=== PATIENT | female | born 1940 | race Caucasian/White ===

== ENCOUNTER 2019-03-14 10:40 | Emergency (ER) | payer MEDICARE ==
[~2019-03-14] VITALS: Ht 154.9 cm; Wt 77.3 kg
[~2019-03-14 10:40] MED LIST: AMLO2.5T2 PO; ASPI-1264 PO; ATEN100T PO; DOCU-20 PO; EZET10TA14 PO; FURO80TA87 PO; LISI40TA4 PO; LORA10TA7 PO; OMEP20TA5 PO; RANI-648 PO
[2019-03-14 11:32] LABS: BASOPHILS % (AUTO) 0.3 % (0-1); EOSINOPHILS # (AUTO) 0.1 X10'3 (0-0.9); EOSINOPHILS % (AUTO) 1.8 % (0-6); HEMATOCRIT 30.6 % (35.0-45.0); HEMOGLOBIN 10.6 g/dl (12.0-16.0); LYMPHOCYTES # (AUTO) 0.7 X10'3 (1.1-4.8); LYMPHOCYTES % (AUTO) 10.5 % (21-51); MEAN CORPUSCULAR HGB CONC 34.5 g/dL (33.0-36.5); MEAN PLATELET VOLUME 8.2 FL (7.4-10.4); MONOCYTES # (AUTO) 0.7 X10'3 (0-0.9); MONOCYTES % (AUTO) 10.9 % (2-12); NEUTROPHILS # (AUTO) 5.2 X10'3 (1.8-7.7); NEUTROPHILS % (AUTO) 76.5 % (42-75); PLATELET COUNT 244 X10'3 (140-440); RED BLOOD COUNT 3.52 X10'6 (4.20-5.60); RED CELL DISTRIBUTION WIDTH 12.9 % (11.5-14.5); WHITE BLOOD COUNT 6.8 X10'3 (4.5-11.0)
[2019-03-14 11:50] LABS: PARTIAL THROMBOPLASTIN TIME 29 SECONDS (22-32)
[2019-03-14 11:51] LABS: ALANINE AMINOTRANSFERASE 21 U/L (12-78); ALBUMIN 3.4 G/DL (3.4-5.0); ALKALINE PHOSPHATASE 92 IU/L (46-116); ANION GAP 6 (8-16); ASPARTATE AMINO TRANSFERASE 17 U/L (10-37); BILIRUBIN,TOTAL 0.6 MG/DL (0.1-1.0); BLOOD UREA NITROGEN 26 MG/DL (7-18); BUN/CREATININE RATIO 20.6 (6.6-38.0); CALCIUM 8.8 MG/DL (8.5-10.1); CHLORIDE 93 MMOL/L (99-107); CREATININE 1.26 MG/DL (0.40-0.90); GLUCOSE 111 MG/DL (70-104); POTASSIUM 4.1 MMOL/L (3.5-5.1); SODIUM 127 MMOL/L (135-145); TOTAL CARBON DIOXIDE 27.7 MMOL/L (24-32); TOTAL PROTEIN 6.9 G/DL (6.4-8.2); eGFR 41 ML/MIN
[2019-03-14] MEDS ORDERED: normal saline 1000ML IV soln IVB ONE (12:35)
[2019-03-14] MEDS ORDERED: iohexol 350MG/ML 100ml bottle IV ONE (12:46)
--- NOTE | 2019-03-14 13:16 | NUR ---
PT RETURNED FROM CT. OXYGEN REAPPLIED AT 5 LITERS. RA SAT AROUND 83%. ON 5 LITERS PT MOVED BACK TO 96%.
--- NOTE | 2019-03-14 15:18 | NUR ---
CALLED DR. PHAN FOR PA. LEFT MESSAGE
[2019-03-14] MEDS ORDERED: dabigatran 150mg capsule PO ONE (15:20)
[2019-03-14] MEDS ORDERED: DABI150C PO (15:47)
[2019-03-14 16:15] VITALS: BP 170/58
== END 2019-03-14 16:18 | disposition home or self-care (01) ==
LOC: ER 10:41
DX: S80.01XA Contusion of right knee, initial encounter (principal); S80.11XA Contusion of right lower leg, initial encounter; R06.02 Shortness of breath; I82.4Z1 Acute embolism and thrombosis of unspecified deep veins of right distal lower extremity; E78.00 Pure hypercholesterolemia, unspecified; I10 Essential (primary) hypertension; K21.9 Gastro-esophageal reflux disease without esophagitis; Z90.710 Acquired absence of both cervix and uterus; Z79.82 Long term (current) use of aspirin; Z79.899 Other long term (current) drug therapy; X58.XXXA Exposure to other specified factors, initial encounter; Y93.89 Activity, other specified; Y92.89 Other specified places as the place of occurrence of the external cause; Y99.8 Other external cause status
CPT/HCPCS: 36415; 71045; 71275; 80053; 84484; 85025; 85379; 85610; 85730; 93005; 93971; 99284; J7030; Q9967

== ENCOUNTER 2021-09-12 07:11 | Day surgery (SDC) | payer MEDICARE ==
[2021-09-11 15:15] LABS: BASOPHILS % (AUTO) 0.3 % (0-1); EOSINOPHILS # (AUTO) 0.2 X10'3 (0-0.9); EOSINOPHILS % (AUTO) 2.7 % (0-6); HEMOGLOBIN 12.9 g/dl (12.0-16.0); LYMPHOCYTES # (AUTO) 1.3 X10'3 (1.1-4.8); LYMPHOCYTES % (AUTO) 17.9 % (21-51); MEAN CORPUSCULAR HEMOGLOBIN 29.7 PG (27.0-31.0); MEAN CORPUSCULAR HGB CONC 33.8 g/dL (33.0-36.5); MEAN CORPUSCULAR VOLUME 87.9 FL (78-98); MEAN PLATELET VOLUME 9.2 FL (7.4-10.4); MONOCYTES # (AUTO) 0.6 X10'3 (0-0.9); NEUTROPHILS # (AUTO) 4.9 X10'3 (1.8-7.7); NEUTROPHILS % (AUTO) 70.1 % (42-75); PLATELET COUNT 203 X10'3 (140-440); RED BLOOD COUNT 4.33 X10'6 (4.20-5.60); RED CELL DISTRIBUTION WIDTH 12.8 % (11.5-14.5); WHITE BLOOD COUNT 7.1 X10'3 (4.5-11.0)
[2021-09-11 15:22] LABS: ANION GAP 9 (8-16); BLOOD UREA NITROGEN 36 MG/DL (7-18); BUN/CREATININE RATIO 18.5 (6.6-38.0); CALCIUM 8.9 MG/DL (8.5-10.1); CHLORIDE 103 MMOL/L (99-107); CREATININE 1.95 MG/DL (0.40-0.90); GLUCOSE 115 MG/DL (70-104); POTASSIUM 4.4 MMOL/L (3.5-5.1); SODIUM 137 MMOL/L (135-145); TOTAL CARBON DIOXIDE 25.2 MMOL/L (24-32); eGFR 25 ML/MIN
[2021-09-11 15:26] LABS: PARTIAL THROMBOPLASTIN TIME 25 SECONDS (22-32)
[2021-09-12] VITALS (14 sets, daily range): BP systolic 18–149; BP diastolic 46–70
[~2021-09-12] VITALS: Ht 154.9 cm; Wt 69.9 kg
[~2021-09-12 07:11] MED LIST changes: -ASPI-1264 PO; +DABI150C PO; -DOCU-20 PO; +DOCU-348 PO; -EZET10TA14 PO; +EZET10TA6 PO; +LISI40TA13 PO; -LISI40TA4 PO
[2021-09-12] MEDS ORDERED: LORazepam 0.5 MG tablet PO PRN (07:40)
[2021-09-12] MEDS ORDERED: sodium bicarbonate (8.4%) inj. 150 ML in dextrose 5%-water 1,000 ML IV ONE (07:40)
[2021-09-12] MEDS ORDERED: normal saline 1,000 ML IV SCH (07:40)
[2021-09-12] MEDS ORDERED: diphenhydrAMINE 25mg capsule PO PRN (07:40)
[2021-09-12] MEDS ORDERED: LIDOcaine/PRILOcaine 5gm cream TP ONE (07:40)
[2021-09-12] MEDS ORDERED: AMLO5TAB16 PO (08:09)
[2021-09-12] MEDS ORDERED: ROSU40TA22 PO (08:09)
[2021-09-12] MEDS ORDERED: CLOP75TA34 PO (08:09)
[2021-09-12] MEDS ORDERED: MULT-1085 PO (08:13)
[2021-09-12] MEDS ORDERED: CALC600T35 PO (08:13)
[2021-09-12] MEDS ORDERED: ibuprofen (08:13)
[2021-09-12] MEDS ORDERED: iohexol 350 MG/ML 50ML vial IV ONE (08:38)
[2021-09-12] MEDS ORDERED: LIDOcaine 1% (10mg/ml)w/preservative injection 20ml MDV ONE (08:38)
[2021-09-12] MEDS ORDERED: iohexol 350MG/ML 100ml bottle IV ONE ×2 (08:38→09:59)
[2021-09-12] MEDS ORDERED: fentaNYL/PF 50MCG/1 ML 2ML syringe ONE (08:38)
[2021-09-12] MEDS ORDERED: verapamil 2.5 mg/ml inj IV ONE (08:38)
[2021-09-12] MEDS ORDERED: heparin 1,000unit/ml 10ml vial 10 ML ONE (08:38)
[2021-09-12] MEDS ORDERED: midazolam 1 mg/ML 2ml injection ONE (08:38)
[2021-09-12] MEDS ORDERED: nitroGLYCERIN-Tridil 50MG/D5W 250 ML IV ONE (08:39)
[2021-09-12] MEDS ORDERED: heparin 25,000 UNIT/250ml bag 250 ML IV ONE (09:59)
[2021-09-12] MEDS ORDERED: clopidogrel 300mg tablet ONE (10:28)
[2021-09-12] MEDS ORDERED: proCHLORperazine 10 MG/2 ml inj IV PRN (11:20)
[2021-09-12] MEDS ORDERED: acetaminophen 325mg tablet PO PRN ×2 (11:20)
[2021-09-12] MEDS ORDERED: HYDROcodone/acetaminophen 10/325mg tab PO PRN ×2 (11:20)
[2021-09-12] MEDS ORDERED: magnesium hydroxide 30ml (MOM) UD suspension PO PRN (11:20)
[2021-09-12] MEDS ORDERED: heparin 25,000 UNIT/250ml bag 250 ML IV SCH (11:20)
[2021-09-12] MEDS ORDERED: cyclobenzaprine 10mg tablet PO PRN (11:20)
[2021-09-12] MEDS ORDERED: OXAZEpam 15mg capsule PO PRN (11:20)
[2021-09-12] MEDS ORDERED: sodium bicarbonate (8.4%) inj. 150 MEQ in dextrose 5%-water 1,000 ML IV SCH (11:25)
[2021-09-12] MEDS: acetylcysteine 200 MG/ml 4ml vial PO PRN ×2 (11:35→19:13)
--- NOTE | 2021-09-12 14:33 | NUR ---
Pt returned to room -report rec'd from Oscar Carr RN- Rt groin site drsg saturated and actively bleeding-R wrist at vasc band w/visible drainage on and around the drsg/vasc band Addendum: 09/12/21 at 1437 by Mami Ann RN Amended: Links added.
[2021-09-12] MEDS ORDERED: docusate sod 100mg capsule PO SCH (20:00)
[2021-09-13] MEDS ORDERED: clopidogrel 75mg tablet PO SCH (08:00)
== END 2021-09-12 19:30 | disposition home or self-care (01) ==
LOC: SSTAY O 07:11
PROVIDERS: ATTEND Internal Medicine Cardiovascular Disease
DX: R94.39 Abnormal result of other cardiovascular function study (principal); I25.10 Atherosclerotic heart disease of native coronary artery without angina pectoris; I25.82 Chronic total occlusion of coronary artery; I08.1 Rheumatic disorders of both mitral and tricuspid valves; I27.20 Pulmonary hypertension, unspecified; E78.5 Hyperlipidemia, unspecified; I25.2 Old myocardial infarction; I10 Essential (primary) hypertension; Z96.653 Presence of artificial knee joint, bilateral; Z90.710 Acquired absence of both cervix and uterus; Z86.711 Personal history of pulmonary embolism; Z79.899 Other long term (current) drug therapy; Z79.01 Long term (current) use of anticoagulants; Z87.891 Personal history of nicotine dependence; Z95.5 Presence of coronary angioplasty implant and graft; Z82.49 Family history of ischemic heart disease and other diseases of the circulatory system
CPT/HCPCS: 36415; 80048; 85025; 85610; 85730; 93005; 93460; 99152; 99153; C1725; C1751; C1769; C1874; C1894; C9600; J1644; J2250; J3010; J3490; J7030; J7070; Q0163; Q9967; A4620; A5120; A6258

== ENCOUNTER 2022-03-06 12:10 | Emergency (ER) | payer MEDICARE ==
[~2022-03-06] VITALS: Ht 154.9 cm; Wt 68.6 kg
[~2022-03-06 12:10] MED LIST changes: -AMLO2.5T2 PO; +AMLO5TAB16 PO; +CALC600T35 PO; +CLOP75TA34 PO; -DABI150C PO; -DOCU-348 PO; -LORA10TA7 PO; +MULT-1085 PO; -OMEP20TA5 PO; -RANI-648 PO; +ROSU40TA22 PO; +ibuprofen
[2022-03-06] MEDS ORDERED: furosemide 40mg/4ml inj IV ONE (12:35)
[2022-03-06 13:05] LABS: BASOPHILS % (AUTO) 0.2 % (0-1); EOSINOPHILS # (AUTO) 0.1 X10'3 (0-0.9); EOSINOPHILS % (AUTO) 1.1 % (0-6); HEMATOCRIT 37.9 % (35.0-45.0); HEMOGLOBIN 12.8 g/dl (12.0-16.0); LYMPHOCYTES # (AUTO) 1.2 X10'3 (1.1-4.8); LYMPHOCYTES % (AUTO) 16.5 % (21-51); MEAN CORPUSCULAR HEMOGLOBIN 28.9 PG (27.0-31.0); MEAN CORPUSCULAR HGB CONC 33.7 g/dL (33.0-36.5); MEAN CORPUSCULAR VOLUME 85.6 FL (78-98); MEAN PLATELET VOLUME 9.1 FL (7.4-10.4); MONOCYTES # (AUTO) 0.7 X10'3 (0-0.9); MONOCYTES % (AUTO) 9.4 % (2-12); NEUTROPHILS # (AUTO) 5.4 X10'3 (1.8-7.7); NEUTROPHILS % (AUTO) 72.8 % (42-75); PLATELET COUNT 173 X10'3 (140-440); RED BLOOD COUNT 4.43 X10'6 (4.20-5.60); RED CELL DISTRIBUTION WIDTH 13.3 % (11.5-14.5); WHITE BLOOD COUNT 7.5 X10'3 (4.5-11.0)
[2022-03-06 13:12] LABS: ALANINE AMINOTRANSFERASE 12 U/L (12-78); ALBUMIN 4.1 G/DL (3.4-5.0); ALBUMIN/GLOBULIN RATIO 1.3 (1.1-1.5); ALKALINE PHOSPHATASE 59 IU/L (46-116); ANION GAP 10 (8-16); ASPARTATE AMINO TRANSFERASE 14 U/L (10-37); BLOOD UREA NITROGEN 43 MG/DL (7-18); BUN/CREATININE RATIO 19.7 (6.6-38.0); CALCIUM 9.5 MG/DL (8.5-10.1); CHLORIDE 101 MMOL/L (99-107); CREATININE 2.18 MG/DL (0.40-0.90); GLUCOSE 115 MG/DL (70-104); POTASSIUM 4.3 MMOL/L (3.5-5.1); SODIUM 138 MMOL/L (135-145); TOTAL CARBON DIOXIDE 27.5 MMOL/L (24-32); TOTAL PROTEIN 7.3 G/DL (6.4-8.2); eGFR 22 ML/MIN
[2022-03-06 17:52] VITALS: BP 146/49
== END 2022-03-06 17:56 | disposition home or self-care (01) ==
LOC: ER 12:11
DX: I13.0 Hypertensive heart and chronic kidney disease with heart failure and stage 1 through stage 4 chronic kidney disease, or unspecified chronic kidney disease (principal); N18.9 Chronic kidney disease, unspecified; E78.00 Pure hypercholesterolemia, unspecified; R06.02 Shortness of breath; K21.9 Gastro-esophageal reflux disease without esophagitis; Z90.710 Acquired absence of both cervix and uterus; Z79.899 Other long term (current) drug therapy
CPT/HCPCS: 36415; 71045; 80053; 83880; 84484; 85025; 93005; 96374; 99285; J1940

== ENCOUNTER 2022-06-19 03:48 | Inpatient (IN) | payer MEDICARE ==
[~2022-06-19] VITALS: Ht 154.9 cm; Wt 65.9 kg
[2022-06-19 04:33] LABS: EOSINOPHILS # (AUTO) 0.2 X10'3 (0-0.9); MEAN CORPUSCULAR HEMOGLOBIN 29.5 PG (27.0-31.0); MEAN PLATELET VOLUME 8.8 FL (7.4-10.4); MONOCYTES # (AUTO) 0.8 X10'3 (0-0.9)
[2022-06-19 04:34] LABS: BASOPHILS % (AUTO) 0.3 % (0-1); EOSINOPHILS % (AUTO) 1.9 % (0-6); HEMATOCRIT 37.9 % (35.0-45.0); HEMOGLOBIN 12.7 g/dl (12.0-16.0); LYMPHOCYTES # (AUTO) 1.7 X10'3 (1.1-4.8); LYMPHOCYTES % (AUTO) 16.8 % (21-51); MEAN CORPUSCULAR HGB CONC 33.6 g/dL (33.0-36.5); MONOCYTES % (AUTO) 7.6 % (2-12); NEUTROPHILS # (AUTO) 7.5 X10'3 (1.8-7.7); NEUTROPHILS % (AUTO) 73.4 % (42-75); PLATELET COUNT 199 X10'3 (140-440); RED BLOOD COUNT 4.31 X10'6 (4.20-5.60); RED CELL DISTRIBUTION WIDTH 13.7 % (11.5-14.5); WHITE BLOOD COUNT 10.2 X10'3 (4.5-11.0)
[2022-06-19 04:40] LABS: ALANINE AMINOTRANSFERASE 14 U/L (12-78); ALBUMIN 3.9 G/DL (3.4-5.0); ALBUMIN/GLOBULIN RATIO 1.4 (1.1-1.5); ALKALINE PHOSPHATASE 58 IU/L (46-116); ANION GAP 10 (8-16); ASPARTATE AMINO TRANSFERASE 16 U/L (10-37); BILIRUBIN,TOTAL 0.6 MG/DL (0.1-1.0); BLOOD UREA NITROGEN 48 MG/DL (7-18); BUN/CREATININE RATIO 14.6 (6.6-38.0); CALCIUM 8.8 MG/DL (8.5-10.1); CHLORIDE 98 MMOL/L (99-107); CREATININE 3.29 MG/DL (0.40-0.90); GLUCOSE 144 MG/DL (70-104); POTASSIUM 4.7 MMOL/L (3.5-5.1); SODIUM 133 MMOL/L (135-145); TOTAL CARBON DIOXIDE 25.1 MMOL/L (24-32); TOTAL PROTEIN 6.7 G/DL (6.4-8.2); eGFR 13 ML/MIN
[2022-06-19] MEDS ORDERED: POTASSIUM BICARB 20meq eff tab 20 MEQ TABLET.EFF PO PRN ×2 (05:20)
[2022-06-19] MEDS ORDERED: ondansetron/PF 4mg/2ml inj IV PRN (05:20)
[2022-06-19] MEDS ORDERED: magnesium 2GM in 50ml NS 50 ML IV PRN (05:20)
[2022-06-19] MEDS ORDERED: magnesium Cl slow-release 64mg tablet PO PRN (05:20)
[2022-06-19] MEDS ORDERED: magnesium 4gm in 100ml NS 100 ML IV PRN (05:20)
[2022-06-19] MEDS ORDERED: potassium CL 10mEq/100ml bag 100 ML IV PRN (05:20)
[2022-06-19] MEDS ORDERED: acetaminophen 325mg tablet PO PRN (05:20)
[2022-06-19] MEDS ORDERED: magnesium hydroxide 30ml (MOM) UD suspension PO PRN (05:20)
[2022-06-19] MEDS ORDERED: mag hydrox/Alum hydrox/simeth 30ml oral suspension PO PRN (05:20)
[2022-06-19] MEDS ORDERED: ROSU5TAB12 PO (05:34)
[2022-06-19] MEDS ORDERED: LISI-644 PO (05:34)
[2022-06-19] MEDS ORDERED: FURO-150 PO (05:34)
[2022-06-19] MEDS: K and/or MAG REPLACEMENT MC SCH ×2 (06:41→20:00)
[2022-06-19] MEDS: lisinopril 20mg tablet PO SCH (07:42)
[2022-06-19] MEDS: amLODIPine 5mg tablet PO SCH (07:42)
[2022-06-19] MEDS: multivitamins, therapeutics tablet PO SCH (07:42)
[2022-06-19] MEDS: docusate sod 100mg capsule PO SCH ×2 (07:43→21:26)
[2022-06-19] MEDS: heparin, porcine 5000 units/ml vial SQ SCH ×2 (07:43→21:27)
[2022-06-19] MEDS: ezetimibe 10mg tablet PO SCH (07:43)
[2022-06-19] MEDS ORDERED: furosemide 20MG tablet PO SCH (08:00)
[2022-06-19] MEDS: ATENOLOL PO SCH (08:00)
[2022-06-19 08:30] LABS: MAGNESIUM 2.5 MG/DL (1.5-2.4)
[2022-06-19] MEDS ORDERED: ROSU20TA31 PO (08:43)
[2022-06-19 11:00] VITALS: BP 120/52
[2022-06-19] MEDS ORDERED: furosemide 10 MG/1 ML 10ml inj IV ONE (11:30)
[2022-06-19 15:00] VITALS: BP 121/40
[2022-06-19 22:00] VITALS: BP 99/48
[2022-06-20 02:00] VITALS: BP 103/41
[2022-06-20 07:20] LABS: BASOPHILS % (AUTO) 0.2 % (0-1); EOSINOPHILS # (AUTO) 0.1 X10'3 (0-0.9); EOSINOPHILS % (AUTO) 1.6 % (0-6); HEMATOCRIT 34.9 % (35.0-45.0); LYMPHOCYTES % (AUTO) 14.8 % (21-51); MEAN CORPUSCULAR HEMOGLOBIN 30.4 PG (27.0-31.0); MEAN CORPUSCULAR HGB CONC 34.4 g/dL (33.0-36.5); MEAN CORPUSCULAR VOLUME 88.3 FL (78-98); MEAN PLATELET VOLUME 8.5 FL (7.4-10.4); MONOCYTES # (AUTO) 0.8 X10'3 (0-0.9); NEUTROPHILS # (AUTO) 4.9 X10'3 (1.8-7.7); NEUTROPHILS % (AUTO) 71.4 % (42-75); PLATELET COUNT 150 X10'3 (140-440); RED BLOOD COUNT 3.95 X10'6 (4.20-5.60); RED CELL DISTRIBUTION WIDTH 13.8 % (11.5-14.5); WHITE BLOOD COUNT 6.8 X10'3 (4.5-11.0)
[2022-06-20 07:41] VITALS: BP 118/41
[2022-06-20 07:42] LABS: ALANINE AMINOTRANSFERASE 14 U/L (12-78); ALBUMIN 3.6 G/DL (3.4-5.0); ALBUMIN/GLOBULIN RATIO 1.3 (1.1-1.5); ALKALINE PHOSPHATASE 55 IU/L (46-116); ANION GAP 7 (8-16); ASPARTATE AMINO TRANSFERASE 17 U/L (10-37); BILIRUBIN,TOTAL 0.7 MG/DL (0.1-1.0); BLOOD UREA NITROGEN 49 MG/DL (7-18); BUN/CREATININE RATIO 15.6 (6.6-38.0); CALCIUM 8.7 MG/DL (8.5-10.1); CHLORIDE 100 MMOL/L (99-107); CREATININE 3.14 MG/DL (0.40-0.90); GLUCOSE 101 MG/DL (70-104); POTASSIUM 4.2 MMOL/L (3.5-5.1); SODIUM 137 MMOL/L (135-145); TOTAL CARBON DIOXIDE 29.9 MMOL/L (24-32); TOTAL PROTEIN 6.4 G/DL (6.4-8.2); eGFR 14 ML/MIN
[2022-06-20] MEDS: K and/or MAG REPLACEMENT MC SCH (08:00)
[2022-06-20] MEDS: ATENOLOL PO SCH (08:00)
[2022-06-20] MEDS ORDERED: PERFLUTREN PROTEIN-A MICROSPHR (Optison) 0.22 MG/ML 3ML VIAL IV ONE (08:40)
[2022-06-20] MEDS: ezetimibe 10mg tablet PO SCH (09:58)
[2022-06-20] MEDS: amLODIPine 5mg tablet PO SCH (09:58)
[2022-06-20] MEDS: lisinopril 20mg tablet PO SCH (09:59)
[2022-06-20] MEDS: multivitamins, therapeutics tablet PO SCH (10:00)
[2022-06-20] MEDS: docusate sod 100mg capsule PO SCH ×2 (10:00→20:23)
[2022-06-20] MEDS: heparin, porcine 5000 units/ml vial SQ SCH ×2 (10:03→20:22)
[2022-06-20] MEDS: furosemide 40mg/4ml inj IV SCH (10:12)
[2022-06-20 15:00] VITALS: BP 138/48
[2022-06-21 02:00] VITALS: BP 123/35
[2022-06-21 06:00] VITALS: BP 116/40
[2022-06-21 08:02] LABS: BASOPHILS % (AUTO) 0.3 % (0-1); EOSINOPHILS # (AUTO) 0.2 X10'3 (0-0.9); EOSINOPHILS % (AUTO) 2.9 % (0-6); HEMATOCRIT 38.9 % (35.0-45.0); HEMOGLOBIN 13.2 g/dl (12.0-16.0); LYMPHOCYTES % (AUTO) 29.5 % (21-51); MEAN CORPUSCULAR HEMOGLOBIN 29.9 PG (27.0-31.0); MEAN CORPUSCULAR HGB CONC 33.9 g/dL (33.0-36.5); MEAN CORPUSCULAR VOLUME 88.2 FL (78-98); MEAN PLATELET VOLUME 9.2 FL (7.4-10.4); MONOCYTES # (AUTO) 0.7 X10'3 (0-0.9); NEUTROPHILS # (AUTO) 3.8 X10'3 (1.8-7.7); NEUTROPHILS % (AUTO) 56.3 % (42-75); PLATELET COUNT 173 X10'3 (140-440); RED BLOOD COUNT 4.41 X10'6 (4.20-5.60); RED CELL DISTRIBUTION WIDTH 13.5 % (11.5-14.5); WHITE BLOOD COUNT 6.7 X10'3 (4.5-11.0)
[2022-06-21 08:31] LABS: ALANINE AMINOTRANSFERASE 15 U/L (12-78); ALBUMIN 3.9 G/DL (3.4-5.0); ALBUMIN/GLOBULIN RATIO 1.2 (1.1-1.5); ALKALINE PHOSPHATASE 57 IU/L (46-116); ANION GAP 9 (8-16); ASPARTATE AMINO TRANSFERASE 13 U/L (10-37); BILIRUBIN,TOTAL 0.7 MG/DL (0.1-1.0); BLOOD UREA NITROGEN 54 MG/DL (7-18); BUN/CREATININE RATIO 18.1 (6.6-38.0); CALCIUM 8.6 MG/DL (8.5-10.1); CHLORIDE 103 MMOL/L (99-107); CREATININE 2.98 MG/DL (0.40-0.90); GLUCOSE 91 MG/DL (70-104); POTASSIUM 4.2 MMOL/L (3.5-5.1); SODIUM 141 MMOL/L (135-145); TOTAL CARBON DIOXIDE 28.8 MMOL/L (24-32); TOTAL PROTEIN 7.1 G/DL (6.4-8.2); eGFR 15 ML/MIN
[2022-06-21] MEDS: ezetimibe 10mg tablet PO SCH (09:58)
[2022-06-21] MEDS: multivitamins, therapeutics tablet PO SCH (09:58)
[2022-06-21] MEDS: lisinopril 20mg tablet PO SCH (10:00)
[2022-06-21] MEDS: amLODIPine 5mg tablet PO SCH (10:00)
[2022-06-21] MEDS: docusate sod 100mg capsule PO SCH (10:01)
[2022-06-21] MEDS: heparin, porcine 5000 units/ml vial SQ SCH (10:04)
[2022-06-21] MEDS: furosemide 40mg/4ml inj IV SCH (10:09)
[2022-06-21 11:00] VITALS: BP 112/45
[2022-06-21 12:00] VITALS: BP 112/45
== END 2022-06-21 12:23 | disposition home or self-care (01) | DRG 291 ==
LOC: ER 03:49 → ED HOLD 05:21 → PCU 3S 09:29
PROVIDERS: ADMIT Internal Medicine; ATTEND Family Medicine
DX: I11.0 Hypertensive heart disease with heart failure (principal); I50.33 Acute on chronic diastolic (congestive) heart failure; R07.89 Other chest pain; I25.10 Atherosclerotic heart disease of native coronary artery without angina pectoris; E78.00 Pure hypercholesterolemia, unspecified; E78.5 Hyperlipidemia, unspecified; K21.9 Gastro-esophageal reflux disease without esophagitis; M19.042 Primary osteoarthritis, left hand; Z87.891 Personal history of nicotine dependence; Z90.710 Acquired absence of both cervix and uterus; Z95.5 Presence of coronary angioplasty implant and graft; Z79.899 Other long term (current) drug therapy
CPT/HCPCS: 36415; 71045; 80053; 83735; 83880; 84132; 84484; 85025; 85610; 87081; 93005; 93306; 99285; G0378; J1644; J1940

== ENCOUNTER 2022-06-26 20:04 | Emergency (ER) | payer MEDICARE ==
[~2022-06-26] VITALS: Ht 154.9 cm; Wt 53.2 kg
[~2022-06-26 20:04] MED LIST changes: -CALC600T35 PO; -CLOP75TA34 PO; +FURO-150 PO; -FURO80TA87 PO; +LISI-644 PO; -LISI40TA13 PO; +ROSU20TA31 PO; -ROSU40TA22 PO; -ibuprofen
[2022-06-26] MEDS ORDERED: furosemide 10 MG/1 ML 10ml inj IV ONE (21:25)
[2022-06-26 22:32] LABS: BASOPHILS % (AUTO) 0.2 % (0-1); EOSINOPHILS # (AUTO) 0.2 X10'3 (0-0.9); EOSINOPHILS % (AUTO) 1.9 % (0-6); HEMATOCRIT 34.3 % (35.0-45.0); HEMOGLOBIN 12.1 g/dl (12.0-16.0); LYMPHOCYTES # (AUTO) 1.2 X10'3 (1.1-4.8); LYMPHOCYTES % (AUTO) 13.1 % (21-51); MEAN CORPUSCULAR HEMOGLOBIN 30.9 PG (27.0-31.0); MEAN CORPUSCULAR HGB CONC 35.1 g/dL (33.0-36.5); MEAN PLATELET VOLUME 8.4 FL (7.4-10.4); MONOCYTES # (AUTO) 0.8 X10'3 (0-0.9); MONOCYTES % (AUTO) 8.6 % (2-12); NEUTROPHILS # (AUTO) 7.3 X10'3 (1.8-7.7); NEUTROPHILS % (AUTO) 76.2 % (42-75); PLATELET COUNT 189 X10'3 (140-440); RED CELL DISTRIBUTION WIDTH 14.1 % (11.5-14.5); WHITE BLOOD COUNT 9.5 X10'3 (4.5-11.0)
[2022-06-26 22:43] LABS: ALANINE AMINOTRANSFERASE 15 U/L (12-78); ALBUMIN 3.8 G/DL (3.4-5.0); ALBUMIN/GLOBULIN RATIO 1.4 (1.1-1.5); ALKALINE PHOSPHATASE 54 IU/L (46-116); ANION GAP 5 (8-16); ASPARTATE AMINO TRANSFERASE 17 U/L (10-37); BILIRUBIN,TOTAL 0.4 MG/DL (0.1-1.0); BLOOD UREA NITROGEN 74 MG/DL (7-18); BUN/CREATININE RATIO 19.2 (6.6-38.0); CALCIUM 9.1 MG/DL (8.5-10.1); CHLORIDE 99 MMOL/L (99-107); CREATININE 3.86 MG/DL (0.40-0.90); GLUCOSE 129 MG/DL (70-104); SODIUM 132 MMOL/L (135-145); TOTAL CARBON DIOXIDE 27.7 MMOL/L (24-32); TOTAL PROTEIN 6.5 G/DL (6.4-8.2); eGFR 11 ML/MIN
--- NOTE | 2022-06-26 22:45 | NUR ---
LASIX GIVEN - PENDING POTASSIUM LABS.
[2022-06-26 22:55] LABS: POTASSIUM 4.8 MMOL/L (3.5-5.1)
[2022-06-26] MEDS ORDERED: furosemide 40mg/4ml inj IV ONE (23:45)
--- NOTE | 2022-06-27 01:26 | NUR ---
Dianna Hanson (Daughter) [phone]
[2022-06-27] MEDS ORDERED: furosemide 10 MG/1 ML 10ml inj IV ONE (05:55)
--- NOTE | 2022-06-27 07:09 | NUR ---
AMBULATED IN HALLWAY PAST NURSES STATION , STEADY GAIT WITH SBA (STATES USES CANE AT HOME) NO SOB NOTED. COMMODE EMPTIED 1000 ML SL CLOUDY URINE.
[2022-06-27 10:07] VITALS: BP 101/49
== END 2022-06-27 17:32 | disposition home or self-care (01) ==
LOC: ER 21:04
DX: N17.9 Acute kidney failure, unspecified (principal); N18.9 Chronic kidney disease, unspecified; J96.90 Respiratory failure, unspecified, unspecified whether with hypoxia or hypercapnia; I11.0 Hypertensive heart disease with heart failure; I50.9 Heart failure, unspecified; E78.00 Pure hypercholesterolemia, unspecified; K21.9 Gastro-esophageal reflux disease without esophagitis; Z90.710 Acquired absence of both cervix and uterus
CPT/HCPCS: 36415; 71045; 80053; 83880; 84484; 85025; 93005; 96374; 99285; J1940

== ENCOUNTER 2022-08-13 07:54 | Inpatient (IN) | payer MEDICARE ==
[~2022-08-13] VITALS: Ht 154.9 cm; Wt 65.9 kg
[2022-08-13 08:49] LABS: BASOPHILS % (AUTO) 0.2 % (0-1); EOSINOPHILS # (AUTO) 0.1 X10'3 (0-0.9); EOSINOPHILS % (AUTO) 0.4 % (0-6); HEMATOCRIT 38.8 % (35.0-45.0); HEMOGLOBIN 12.8 g/dl (12.0-16.0); LYMPHOCYTES # (AUTO) 1.6 X10'3 (1.1-4.8); LYMPHOCYTES % (AUTO) 11.8 % (21-51); MEAN CORPUSCULAR HEMOGLOBIN 30.2 PG (27.0-31.0); MEAN CORPUSCULAR VOLUME 91.7 FL (78-98); MEAN PLATELET VOLUME 9.1 FL (7.4-10.4); MONOCYTES # (AUTO) 0.4 X10'3 (0-0.9); MONOCYTES % (AUTO) 3.2 % (2-12); NEUTROPHILS # (AUTO) 11.4 X10'3 (1.8-7.7); NEUTROPHILS % (AUTO) 84.4 % (42-75); PLATELET COUNT 171 X10'3 (140-440); RED BLOOD COUNT 4.23 X10'6 (4.20-5.60); RED CELL DISTRIBUTION WIDTH 13.3 % (11.5-14.5); WHITE BLOOD COUNT 13.5 X10'3 (4.5-11.0)
[2022-08-13 08:55] LABS: ALANINE AMINOTRANSFERASE 15 U/L (12-78); ALBUMIN/GLOBULIN RATIO 1.4 (1.1-1.5); ALKALINE PHOSPHATASE 58 IU/L (46-116); ANION GAP 13 (8-16); ASPARTATE AMINO TRANSFERASE 20 U/L (10-37); BILIRUBIN,TOTAL 0.5 MG/DL (0.1-1.0); BLOOD UREA NITROGEN 58 MG/DL (7-18); CALCIUM 9.4 MG/DL (8.5-10.1); CHLORIDE 104 MMOL/L (99-107); CREATININE 2.64 MG/DL (0.40-0.90); GLUCOSE 185 MG/DL (70-104); POTASSIUM 3.7 MMOL/L (3.5-5.1); SODIUM 139 MMOL/L (135-145); TOTAL PROTEIN 6.9 G/DL (6.4-8.2); eGFR 17 ML/MIN
--- NOTE | 2022-08-13 09:23 | NUR ---
LAB CALLED, KITTY Bedoya REPORTED TO DR. AUSTIN
[2022-08-13] MEDS ORDERED: enoxaparin 100mg/ml syringe SUBCUT ONE (10:05)
[2022-08-13] MEDS ORDERED: enoxaparin 60mg/0.6ml syringe SUBCUT ONE (10:15)
[2022-08-13] MEDS ORDERED: magnesium hydroxide 30ml (MOM) UD suspension PO PRN (10:35)
[2022-08-13] MEDS ORDERED: ondansetron/PF 4mg/2ml inj IV PRN (10:35)
[2022-08-13] MEDS ORDERED: nitroGLYCERIN 0.4mg SUBLingual tab SL PRN (10:35)
[2022-08-13] MEDS ORDERED: mag hydrox/Alum hydrox/simeth 30ml oral suspension PO PRN (10:35)
[2022-08-13] MEDS ORDERED: morphine 2 MG/ML inj. syringe IV PRN ×2 (10:35)
[2022-08-13] MEDS ORDERED: acetaminophen 325mg tablet PO PRN ×2 (10:35)
[2022-08-13] MEDS ORDERED: ALEN10TA27 PO (12:01)
[2022-08-13] MEDS ORDERED: ROSU40TA PO (12:01)
[2022-08-13] MEDS ORDERED: CLOP-32 PO (12:01)
--- NOTE | 2022-08-13 12:15 | NUR ---
LAB CALLED TROP: [id number]. INFORMED DR. GU
[2022-08-13] MEDS: furosemide 20 MG/2 ML vial IV SCH ×2 (14:14→20:59)
--- NOTE | 2022-08-13 15:46 | NUR ---
CALL PUT INTO DR. INGRAM TO REPORT TROP [id number]. HAS NOT RETURNED MY CALL.
[2022-08-13] MEDS ORDERED: heparin 10,000 units/1 ML INJ IV PRN (16:00)
--- NOTE | 2022-08-13 16:05 | NUR ---
TETO FROM CARDIAC AT BEDSIDE
--- NOTE | 2022-08-13 16:57 | NUR ---
MARLY SON CALLED, GAVE HIM AN UPDATE. PT WILL PROBABLY BE GOING TO CARDIAC CATH TOMORROW.
--- NOTE | 2022-08-13 18:49 | NUR ---
CONSENT FOR CARDIAC CATHERIZATION, POSSIBLE STENTING. NPO AFTER MN
--- NOTE | 2022-08-13 19:16 | NUR ---
Rec'd report for Didier in the ER.
[2022-08-13] MEDS ORDERED: heparin 25,000 UNIT/250ml bag 250 ML IV PRN (19:37)
[2022-08-13] MEDS ORDERED: heparin 10,000 units/1 ML INJ IV ONE (19:37)
[2022-08-13 19:57] LABS: APTT 32 SECONDS (22-32)
[2022-08-13] MEDS ORDERED: acetylcysteine 200 MG/ml 4ml vial PO ONE (20:00)
--- NOTE | 2022-08-13 20:13 | NUR ---
Arrived from ER on hospital bed, in no obvious distress. I will continue to monitor.
[2022-08-13 20:30] VITALS: BP 129/49
[2022-08-13] MEDS: docusate sod 100mg capsule PO SCH (20:59)
[2022-08-13] MEDS: sodium bicarbonate (8.4%) inj. 150 MEQ in sodium chloride 0.45% 1,000 ML IV SCH (21:00)
[2022-08-13 22:00] VITALS: BP 125/32
[2022-08-14] VITALS (14 sets, daily range): BP systolic 92–125; BP diastolic 38–84
[2022-08-14 03:00] LABS: BASOPHILS % (AUTO) 0.4 % (0-1); EOSINOPHILS # (AUTO) 0.1 X10'3 (0-0.9); EOSINOPHILS % (AUTO) 1.2 % (0-6); HEMATOCRIT 34.6 % (35.0-45.0); HEMOGLOBIN 12.1 g/dl (12.0-16.0); LYMPHOCYTES # (AUTO) 1.6 X10'3 (1.1-4.8); MEAN CORPUSCULAR HEMOGLOBIN 31.4 PG (27.0-31.0); MEAN CORPUSCULAR HGB CONC 34.8 g/dL (33.0-36.5); MEAN CORPUSCULAR VOLUME 90.2 FL (78-98); MEAN PLATELET VOLUME 8.8 FL (7.4-10.4); MONOCYTES # (AUTO) 0.7 X10'3 (0-0.9); NEUTROPHILS # (AUTO) 5.2 X10'3 (1.8-7.7); NEUTROPHILS % (AUTO) 68.4 % (42-75); PLATELET COUNT 145 X10'3 (140-440); RED BLOOD COUNT 3.84 X10'6 (4.20-5.60); RED CELL DISTRIBUTION WIDTH 13.3 % (11.5-14.5); WHITE BLOOD COUNT 7.6 X10'3 (4.5-11.0)
[2022-08-14 03:23] LABS: ALBUMIN 3.5 G/DL (3.4-5.0); ANION GAP 10 (8-16); BLOOD UREA NITROGEN 55 MG/DL (7-18); BUN/CREATININE RATIO 20.4 (6.6-38.0); CALCIUM 8.8 MG/DL (8.5-10.1); CHLORIDE 105 MMOL/L (99-107); CREATININE 2.69 MG/DL (0.40-0.90); GLUCOSE 97 MG/DL (70-104); POTASSIUM 3.9 MMOL/L (3.5-5.1); SODIUM 143 MMOL/L (135-145); TOTAL CARBON DIOXIDE 28.2 MMOL/L (24-32); eGFR 17 ML/MIN
--- NOTE | 2022-08-14 03:48 | NUR ---
Occurrence report submitted for patient fall. Addendum: 08/14/22 at 0349 by Mami Anand RN wrong patient
[2022-08-14] MEDS: sodium bicarbonate (8.4%) inj. 150 MEQ in sodium chloride 0.45% 1,000 ML IV SCH ×2 (06:10→17:06)
--- NOTE | 2022-08-14 06:27 | NUR ---
Problems reprioritized. Patient report given, questions answered & plan of care reviewed with KHARI Roy.
[2022-08-14] MEDS ORDERED: LIDOcaine 1% (10mg/ml) 2ml vial ONE (07:51)
[2022-08-14] MEDS ORDERED: nitroGLYCERIN-Tridil 50MG/D5W 250 ML IV ONE (07:51)
[2022-08-14] MEDS ORDERED: verapamil 2.5 mg/ml inj IV ONE (07:51)
[2022-08-14] MEDS ORDERED: fentaNYL/PF 50MCG/1 ML 2ML syringe ONE (07:51)
[2022-08-14] MEDS ORDERED: midazolam 1 mg/ML 2ml injection ONE (07:51)
[2022-08-14] MEDS ORDERED: heparin 1,000unit/ml 10ml vial 10 ML ONE (07:52)
[2022-08-14] MEDS ORDERED: iohexol 350 MG/ML 50ML vial IV ONE (07:52)
[2022-08-14] MEDS ORDERED: iohexol 350MG/ML 100ml bottle IV ONE ×2 (07:52→08:33)
[2022-08-14] MEDS: furosemide 20 MG/2 ML vial IV SCH ×2 (08:00→20:14)
[2022-08-14] MEDS ORDERED: iohexol 300mg/ml 100ml inj. ONE (09:00)
[2022-08-14] MEDS: docusate sod 100mg capsule PO SCH ×2 (09:22→20:14)
[2022-08-14] MEDS: aspirin 81mg, enteric-coated 1 TAB TABLET.DR PO SCH (09:23)
[2022-08-14] MEDS ORDERED: tirofiban 5mg in NS 100mL 100 ML IV ONE (09:38)
[2022-08-14] MEDS ORDERED: ticagrelor 90mg tablet ONE (09:44)
[2022-08-14] MEDS ORDERED: furosemide 40mg/4ml inj ONE (09:59)
[2022-08-14] MEDS ORDERED: ticagrelor 90mg tablet PO ONE (10:45)
--- NOTE | 2022-08-14 11:26 | NUR ---
MESSAGE: RE: [id number] Holli Curry Pt continuously coughing, lungs sound coarse now feels like she cant breathe turned O2 up to 4lL still sating 91% coughed a little bit of blood from coughing so hard Kirill LUCIA [id number]
[2022-08-14] MEDS ORDERED: tirofiban 12.5mg in NS 250mL IV SCH (11:40)
[2022-08-14] MEDS ORDERED: furosemide 40mg/4ml inj IV ONE (11:50)
[2022-08-14] MEDS: tirofiban 12.5mg in NS 250mL 250 ML IV SCH (13:41)
[2022-08-15 03:44] VITALS: BP 113/61
[2022-08-15] MEDS: tirofiban 12.5mg in NS 250mL 250 ML IV SCH (04:23)
[2022-08-15] MEDS: sodium bicarbonate (8.4%) inj. 150 MEQ in sodium chloride 0.45% 1,000 ML IV SCH (04:23)
[2022-08-15 06:06] VITALS: BP 128/67
[2022-08-15 06:38] LABS: BASOPHILS % (AUTO) 0.2 % (0-1); EOSINOPHILS # (AUTO) 0.1 X10'3 (0-0.9); EOSINOPHILS % (AUTO) 1.8 % (0-6); HEMATOCRIT 32.4 % (35.0-45.0); HEMOGLOBIN 11.3 g/dl (12.0-16.0); LYMPHOCYTES # (AUTO) 1.1 X10'3 (1.1-4.8); LYMPHOCYTES % (AUTO) 15.8 % (21-51); MEAN CORPUSCULAR HEMOGLOBIN 31.3 PG (27.0-31.0); MEAN CORPUSCULAR HGB CONC 34.9 g/dL (33.0-36.5); MEAN CORPUSCULAR VOLUME 89.7 FL (78-98); MEAN PLATELET VOLUME 8.8 FL (7.4-10.4); MONOCYTES # (AUTO) 0.8 X10'3 (0-0.9); MONOCYTES % (AUTO) 11.8 % (2-12); NEUTROPHILS # (AUTO) 5.1 X10'3 (1.8-7.7); NEUTROPHILS % (AUTO) 70.4 % (42-75); PLATELET COUNT 155 X10'3 (140-440); RED BLOOD COUNT 3.61 X10'6 (4.20-5.60); RED CELL DISTRIBUTION WIDTH 13.4 % (11.5-14.5); WHITE BLOOD COUNT 7.2 X10'3 (4.5-11.0)
[2022-08-15 07:26] LABS: ALBUMIN 3.6 G/DL (3.4-5.0); ANION GAP 8 (8-16); BLOOD UREA NITROGEN 47 MG/DL (7-18); BUN/CREATININE RATIO 17.1 (6.6-38.0); CALCIUM 8.4 MG/DL (8.5-10.1); CHLORIDE 101 MMOL/L (99-107); CHOL/HDL RATIO 2.7 (0.00-4.99); CHOLESTEROL 134 MG/DL (0-200); CREATININE 2.75 MG/DL (0.40-0.90); GLUCOSE 109 MG/DL (70-104); HDL CHOLESTEROL 49 MG/DL (35-60); LDL CHOLESTEROL 62 MG/DL (50-100); POTASSIUM 3.5 MMOL/L (3.5-5.1); SODIUM 140 MMOL/L (135-145); TOTAL CARBON DIOXIDE 31.5 MMOL/L (24-32); TRIGLYCERIDES 140 MG/DL (20-135); eGFR 16 ML/MIN
[2022-08-15] MEDS ORDERED: multivitamins, therapeutics tablet PO SCH (08:00)
[2022-08-15] MEDS ORDERED: lisinopril 20mg tablet PO SCH (08:00)
[2022-08-15] MEDS ORDERED: non-formulary drug (Alendronate Sodium 1 TAB) PO SCH (08:00)
[2022-08-15] MEDS ORDERED: ticagrelor 90mg tablet PO SCH (08:00)
[2022-08-15] MEDS ORDERED: atorvastatin 20mg tablet PO SCH (08:00)
[2022-08-15] MEDS ORDERED: furosemide 20MG tablet PO SCH (08:00)
[2022-08-15] MEDS ORDERED: amLODIPine 5mg tablet PO SCH (08:00)
[2022-08-15] MEDS ORDERED: ezetimibe 10mg tablet PO SCH (08:00)
[2022-08-15] MEDS ORDERED: atenolol 50mg tablet PO SCH (08:00)
[2022-08-15] MEDS: furosemide 20 MG/2 ML vial IV SCH (09:06)
[2022-08-15] MEDS: docusate sod 100mg capsule PO SCH (09:07)
[2022-08-15] MEDS: aspirin 81mg, enteric-coated 1 TAB TABLET.DR PO SCH (09:13)
[2022-08-15] MEDS ORDERED: FURO-150 PO ×2 (09:34)
[2022-08-15] MEDS ORDERED: ASPI-1071 PO ×2 (09:34)
[2022-08-15] MEDS ORDERED: TICA90TA PO ×2 (09:34)
[2022-08-15 11:00] VITALS: BP 133/49
[2022-08-19] MEDS ORDERED: CLOP-32 PO (23:24)
[2022-08-20] MEDS ORDERED: FURO20TA4 PO (00:32)
[2022-08-20] MEDS ORDERED: ASPI-1397 PO (00:33)
[2022-08-20] MEDS ORDERED: ROSU20TA31 PO (00:51)
[2022-08-20] MEDS ORDERED: FAMO20TA8 PO (00:51)
[2022-08-20] MEDS ORDERED: AMLO5TAB16 PO (00:51)
[2022-08-20] MEDS ORDERED: ROSU40TA22 PO (16:58)
[2022-08-20] MEDS ORDERED: AMLO5TAB PO (16:58)
== END 2022-08-15 13:41 | disposition home or self-care (01) | DRG 250 ==
LOC: ER 07:55 → ED HOLD 10:41 → PCU 3S 20:00
PROVIDERS: ADMIT Internal Medicine; ATTEND Internal Medicine
PROC: 4A023N7 Measurement of Cardiac Sampling and Pressure, Left Heart, Percutaneous Approach (ICD-10-PCS; principal; 2022-08-14)
PROC: 02713ZZ Dilation of Coronary Artery, Two Arteries, Percutaneous Approach (ICD-10-PCS; 2022-08-14)
PROC: B2111ZZ Fluoroscopy of Multiple Coronary Arteries using Low Osmolar Contrast (ICD-10-PCS; 2022-08-14)
PROC: B2151ZZ Fluoroscopy of Left Heart using Low Osmolar Contrast (ICD-10-PCS; 2022-08-14)
PROC: B241ZZ3 Ultrasonography of Multiple Coronary Arteries, Intravascular (ICD-10-PCS; 2022-08-14)
DX: T82.855A Stenosis of coronary artery stent, initial encounter (principal); I21.4 Non-ST elevation (NSTEMI) myocardial infarction; I50.21 Acute systolic (congestive) heart failure; J96.00 Acute respiratory failure, unspecified whether with hypoxia or hypercapnia; I13.0 Hypertensive heart and chronic kidney disease with heart failure and stage 1 through stage 4 chronic kidney disease, or unspecified chronic kidney disease; N18.4 Chronic kidney disease, stage 4 (severe); I25.10 Atherosclerotic heart disease of native coronary artery without angina pectoris; E78.00 Pure hypercholesterolemia, unspecified; I08.1 Rheumatic disorders of both mitral and tricuspid valves; Y84.0 Cardiac catheterization as the cause of abnormal reaction of the patient, or of later complication, without mention of misadventure at the time of the procedure; Z96.653 Presence of artificial knee joint, bilateral; K21.9 Gastro-esophageal reflux disease without esophagitis; R74.8 Abnormal levels of other serum enzymes; I25.2 Old myocardial infarction; Z79.02 Long term (current) use of antithrombotics/antiplatelets; Z79.82 Long term (current) use of aspirin; Z79.899 Other long term (current) drug therapy; Z86.711 Personal history of pulmonary embolism; Z87.891 Personal history of nicotine dependence; Z90.710 Acquired absence of both cervix and uterus; Z95.5 Presence of coronary angioplasty implant and graft; Y92.89 Other specified places as the place of occurrence of the external cause
CPT/HCPCS: 36415; 71045; 76937; 80048; 80053; 80061; 83880; 84484; 85025; 85347; 85730; 92920; 92921; 92978; 93005; 93306; 93458; 99152; 99153; 99285; A4620; A6258; C1725; C1751; C1753; C1769; C1894; G0378; J1644; J1650; J1940; J2250; J3010; J3246; J3490; J7040; Q9967

== ENCOUNTER 2024-01-22 19:12 | Emergency (ER) | payer MEDICARE ==
[~2024-01-22] VITALS: Ht 154.9 cm; Wt 71.1 kg
[~2024-01-22 19:12] MED LIST changes: +ALEN10TA27 PO; +AMLO5TAB PO; -AMLO5TAB16 PO; +ASPI-1397 PO; -ATEN100T PO; +ATEN50TA41 PO; +CLOP-32 PO; +IPRA3AMP9 NEB; -LISI-644 PO; +LISI20TA28 PO; +PANT40TA54 PO; -ROSU20TA31 PO; +ROSU40TA22 PO
[2024-01-22 19:15] VITALS: TEMP 97
[2024-01-22 19:47] LABS: HEMOGLOBIN 11.7 g/dl (12.0-16.0); MEAN CORPUSCULAR VOLUME 88.3 FL (78-98); RED CELL DISTRIBUTION WIDTH 13.6 % (11.5-14.5); WHITE BLOOD COUNT 7.5 X10'3 (4.5-11.0)
[2024-01-22 19:49] LABS: BASOPHILS % (AUTO) 0.4 % (0-1); EOSINOPHILS # (AUTO) 0.1 X10'3 (0-0.9); EOSINOPHILS % (AUTO) 1.8 % (0-6); HEMATOCRIT 34.8 % (35.0-45.0); LYMPHOCYTES # (AUTO) 1.9 X10'3 (1.1-4.8); LYMPHOCYTES % (AUTO) 24.8 % (21-51); MEAN CORPUSCULAR HEMOGLOBIN 29.7 PG (27.0-31.0); MEAN CORPUSCULAR HGB CONC 33.6 g/dL (33.0-36.5); MEAN PLATELET VOLUME 8.9 FL (7.4-10.4); MONOCYTES # (AUTO) 0.7 X10'3 (0-0.9); MONOCYTES % (AUTO) 9.4 % (2-12); NEUTROPHILS # (AUTO) 4.8 X10'3 (1.8-7.7); NEUTROPHILS % (AUTO) 63.6 % (42-75); PLATELET COUNT 184 X10'3 (140-440); RED BLOOD COUNT 3.94 X10'6 (4.20-5.60)
[2024-01-22 20:05] LABS: ALBUMIN 3.7 G/DL (3.4-5.0); ANION GAP 10 (8-16); BLOOD UREA NITROGEN 41 MG/DL (7-18); BUN/CREATININE RATIO 24.4 (10.0-20.0); CALCIUM 8.8 MG/DL (8.5-10.1); CHLORIDE 102 MMOL/L (99-107); CREATININE 1.68 MG/DL (0.40-0.90); GLUCOSE 121 MG/DL (70-104); POTASSIUM 3.7 MMOL/L (3.5-5.1); PRO BRAIN NATRIURETIC PEPTIDE 927 PG/ML (0-450); SODIUM 140 MMOL/L (135-145); eCRCL 19 ML/MIN; eGFR 29 ML/MIN
[2024-01-22] MEDS: normal saline 1000ML IV soln IVB ONE (21:05)
[2024-01-22] MEDS: acetaminophen 325mg tablet PO ONE (21:25)
[2024-01-23 00:11] VITALS: BP 113/54; PULSE 85; RESP 18; O2SAT 94
== END 2024-01-23 00:19 | disposition home or self-care (01) ==
LOC: ER 19:14
DX: R42 Dizziness and giddiness (principal); E86.0 Dehydration; E11.22 Type 2 diabetes mellitus with diabetic chronic kidney disease; I13.0 Hypertensive heart and chronic kidney disease with heart failure and stage 1 through stage 4 chronic kidney disease, or unspecified chronic kidney disease; I50.9 Heart failure, unspecified; N18.9 Chronic kidney disease, unspecified; N17.9 Acute kidney failure, unspecified; I25.10 Atherosclerotic heart disease of native coronary artery without angina pectoris; E78.00 Pure hypercholesterolemia, unspecified; K21.9 Gastro-esophageal reflux disease without esophagitis; Z90.710 Acquired absence of both cervix and uterus; Z98.890 Other specified postprocedural states
CPT/HCPCS: 36415; 70450; 71045; 80048; 83880; 84484; 85025; 93005; 96360; 99285; J7030

== ENCOUNTER 2024-11-19 18:20 | Inpatient (IN) | payer MEDICARE ==
[~2024-11-19] VITALS: Ht 154.9 cm; Wt 65.8 kg
[~2024-11-19 18:20] MED LIST changes: -ROSU40TA22 PO; +ROSU40TA89 PO
[2024-11-19 18:46] LABS: BASOPHILS % (AUTO) 0.1 % (0-1); EOSINOPHILS # (AUTO) 0.1 X10'3 (0-0.9); EOSINOPHILS % (AUTO) 1.1 % (0-6); HEMATOCRIT 22.7 % (35.0-45.0); HEMOGLOBIN 7.3 g/dl (12.0-16.0); LYMPHOCYTES # (AUTO) 1.1 X10'3 (1.1-4.8); LYMPHOCYTES % (AUTO) 12.3 % (21-51); MEAN CORPUSCULAR HEMOGLOBIN 25.5 PG (27.0-31.0); MEAN CORPUSCULAR HGB CONC 32.2 g/dL (33.0-36.5); MEAN CORPUSCULAR VOLUME 79.1 FL (78-98); MEAN PLATELET VOLUME 8.3 FL (7.4-10.4); MONOCYTES # (AUTO) 0.8 X10'3 (0-0.9); MONOCYTES % (AUTO) 8.9 % (2-12); NEUTROPHILS % (AUTO) 77.6 % (42-75); PLATELET COUNT 234 X10'3 (140-440); RED BLOOD COUNT 2.87 X10'6 (4.20-5.60); RED CELL DISTRIBUTION WIDTH 16.1 % (11.5-14.5); WHITE BLOOD COUNT 9.1 X10'3 (4.5-11.0)
[2024-11-19 18:58] LABS: ALANINE AMINOTRANSFERASE 19 U/L (12-78); ALBUMIN 3.8 G/DL (3.4-5.0); ALBUMIN/GLOBULIN RATIO 1.4 (1.1-1.5); ALKALINE PHOSPHATASE 52 IU/L (46-116); ANION GAP 8 (8-16); ASPARTATE AMINO TRANSFERASE 17 U/L (10-37); BILIRUBIN,TOTAL 0.4 MG/DL (0.1-1.0); BLOOD UREA NITROGEN 57 MG/DL (7-18); BUN/CREATININE RATIO 35.6 (10.0-20.0); CHLORIDE 102 MMOL/L (99-107); GLUCOSE 139 MG/DL (70-104); POTASSIUM 3.9 MMOL/L (3.5-5.1); SODIUM 137 MMOL/L (135-145); TOTAL CARBON DIOXIDE 26.9 MMOL/L (24-32); TOTAL PROTEIN 6.5 G/DL (6.4-8.2); eCRCL 19 ML/MIN; eGFR 31 ML/MIN
[2024-11-19 19:06] LABS: PRO BRAIN NATRIURETIC PEPTIDE 2229 PG/ML (0-450)
[2024-11-19 19:29] LABS: ANISOCYTOSIS 1+; PLATELET ESTIMATE NORMAL
[2024-11-19 19:30] LABS: MICROCYTOSIS 1+
[2024-11-19] MEDS: pantoprazole 40 MG vial IV STA (20:29)
[2024-11-19] MEDS ORDERED: magnesium Cl slow-release 64mg tablet PO PRN (20:35)
[2024-11-19] MEDS ORDERED: potassium Cl 40MEQ/1/2NS 520ml 520 ML IV PRN (20:35)
[2024-11-19] MEDS ORDERED: magnesium sulf-water 2g/50mL 50 ML IV PRN (20:35)
[2024-11-19] MEDS ORDERED: mag hydrox/Alum hydrox/simeth 30ml oral suspension PO PRN (20:35)
[2024-11-19] MEDS ORDERED: HYDROcodone/acetaminophen 10/325mg tab PO PRN (20:35)
[2024-11-19] MEDS ORDERED: magnesium sulf-water 4G/100mL 100 ML IV PRN (20:35)
[2024-11-19] MEDS ORDERED: acetaminophen 325mg tablet PO PRN ×2 (20:35)
[2024-11-19] MEDS ORDERED: HYDROcodone/acetaminophen 5mg/325mg tablet PO PRN (20:35)
[2024-11-19] MEDS ORDERED: potassium Cl 20 mEq SR tablet PO PRN ×2 (20:35)
[2024-11-19] MEDS ORDERED: morphine 2 MG/ML inj. syringe IV PRN (20:35)
[2024-11-19 20:38] LABS: APTT 23 SECONDS (22-32); PROTHROMBIN TIME 10.8 SECONDS (9.0-12.0)
[2024-11-19 21:43] LABS: FERRITIN 9 NG/ML (8-252)
[2024-11-19 22:08] LABS: % IRON SATURATION 3 % (11-46); IRON 11 UG/DL (49-151); TOTAL IRON BINDING CAPACITY 348 UG/DL (259-388)
[2024-11-19 23:09] VITALS: BP 79/30; PULSE 79; RESP 14; TEMP 98.9
[2024-11-19 23:24] VITALS: BP 95/33; PULSE 86; RESP 18; TEMP 98.4
[2024-11-20] VITALS (7 sets, daily range): BP systolic 87–130; BP diastolic 39–50; PULSE 86–94; RESP 14–28; TEMP 97.6–99.5; O2SAT 94–97
[2024-11-20] MEDS: pantoprazole 40MG/NS 100ML BAG 100 ML IV SCH (01:06)
[2024-11-20 06:12] LABS: BASOPHILS % (AUTO) 0.2 % (0-1); EOSINOPHILS # (AUTO) 0.2 X10'3 (0-0.9); EOSINOPHILS % (AUTO) 2.4 % (0-6); HEMATOCRIT 25.6 % (35.0-45.0); HEMOGLOBIN 8.4 g/dl (12.0-16.0); LYMPHOCYTES % (AUTO) 14.4 % (21-51); MEAN CORPUSCULAR HEMOGLOBIN 26.8 PG (27.0-31.0); MEAN CORPUSCULAR HGB CONC 32.8 g/dL (33.0-36.5); MEAN CORPUSCULAR VOLUME 81.9 FL (78-98); MEAN PLATELET VOLUME 8.5 FL (7.4-10.4); MONOCYTES # (AUTO) 0.7 X10'3 (0-0.9); MONOCYTES % (AUTO) 9.6 % (2-12); NEUTROPHILS # (AUTO) 5.1 X10'3 (1.8-7.7); NEUTROPHILS % (AUTO) 73.4 % (42-75); PLATELET COUNT 182 X10'3 (140-440); RED BLOOD COUNT 3.13 X10'6 (4.20-5.60)
[2024-11-20 06:20] LABS: INR 1.1 INR; PROTHROMBIN TIME 11.1 SECONDS (9.0-12.0)
[2024-11-20] MEDS: K and/or MAG REPLACEMENT MC SCH (06:30)
[2024-11-20 06:53] LABS: ALANINE AMINOTRANSFERASE 16 U/L (12-78); ALBUMIN 3.3 G/DL (3.4-5.0); ALBUMIN/GLOBULIN RATIO 1.4 (1.1-1.5); ALKALINE PHOSPHATASE 42 IU/L (46-116); ANION GAP 6 (8-16); ASPARTATE AMINO TRANSFERASE 14 U/L (10-37); BILIRUBIN,TOTAL 0.8 MG/DL (0.1-1.0); BLOOD UREA NITROGEN 52 MG/DL (7-18); BUN/CREATININE RATIO 31.7 (10.0-20.0); CALCIUM 8.3 MG/DL (8.5-10.1); CHLORIDE 107 MMOL/L (99-107); CREATININE 1.64 MG/DL (0.40-0.90); GLUCOSE 90 MG/DL (70-104); POTASSIUM 3.9 MMOL/L (3.5-5.1); SODIUM 141 MMOL/L (135-145); TOTAL CARBON DIOXIDE 27.9 MMOL/L (24-32); TOTAL PROTEIN 5.7 G/DL (6.4-8.2); eCRCL 19 ML/MIN; eGFR 30 ML/MIN
[2024-11-20 07:00] LABS: CHOL/HDL RATIO 2.1 (0.00-4.99); CHOLESTEROL 121 MG/DL (0-200); HDL CHOLESTEROL 57 MG/DL (35-60); LDL CHOLESTEROL 48 MG/DL (50-100); MAGNESIUM 2.7 MG/DL (1.5-2.4); PHOSPHORUS 3.9 MG/DL (2.3-4.5); TRIGLYCERIDES 76 MG/DL (20-135)
[2024-11-20] MEDS: lisinopril 10 MG tablet PO SCH (08:02)
[2024-11-20] MEDS: furosemide 10 MG/1 ML 10ml inj IV SCH (08:03)
[2024-11-20 09:34] LABS: HEMOGLOBIN 8.5 g/dl (12.0-16.0); MEAN CORPUSCULAR HEMOGLOBIN 26.7 PG (27.0-31.0); MEAN CORPUSCULAR HGB CONC 32.9 g/dL (33.0-36.5); MEAN CORPUSCULAR VOLUME 81.1 FL (78-98); MEAN PLATELET VOLUME 8.2 FL (7.4-10.4); PLATELET COUNT 188 X10'3 (140-440); RED CELL DISTRIBUTION WIDTH 16.6 % (11.5-14.5); WHITE BLOOD COUNT 7.6 X10'3 (4.5-11.0)
[2024-11-20] MEDS: iron sucrose complex injection 300 MG in normal saline 250ml IV soln 250 ML IV SCH (10:34)
[2024-11-20] MEDS: psyllium seed 5.8 gm packet (sugar-free) PO ONE (10:37)
[2024-11-20 11:49] LABS: OCCULT BLOOD STOOL POSITIVE (Neg)
[2024-11-20 16:27] LABS: HEMATOCRIT 27.9 % (35.0-45.0); HEMOGLOBIN 9.1 g/dl (12.0-16.0); MEAN CORPUSCULAR HEMOGLOBIN 26.8 PG (27.0-31.0); MEAN CORPUSCULAR HGB CONC 32.5 g/dL (33.0-36.5); MEAN CORPUSCULAR VOLUME 82.2 FL (78-98); MEAN PLATELET VOLUME 8.4 FL (7.4-10.4); PLATELET COUNT 194 X10'3 (140-440); RED CELL DISTRIBUTION WIDTH 16.8 % (11.5-14.5); WHITE BLOOD COUNT 9.5 X10'3 (4.5-11.0)
[2024-11-20] MEDS: psyllium seed 5.8 gm packet (sugar-free) PO SCH (19:10)
[2024-11-21] VITALS (11 sets, daily range): BP systolic 87–134; BP diastolic 40–86; PULSE 67–93; RESP 12–25; TEMP 97.6–98.5; O2SAT 91–99
[2024-11-21 05:43] LABS: BASOPHILS % (AUTO) 0.2 % (0-1); EOSINOPHILS # (AUTO) 0.3 X10'3 (0-0.9); EOSINOPHILS % (AUTO) 3.5 % (0-6); HEMATOCRIT 26.2 % (35.0-45.0); HEMOGLOBIN 8.5 g/dl (12.0-16.0); LYMPHOCYTES % (AUTO) 11.6 % (21-51); MEAN CORPUSCULAR HEMOGLOBIN 26.6 PG (27.0-31.0); MEAN CORPUSCULAR HGB CONC 32.6 g/dL (33.0-36.5); MEAN CORPUSCULAR VOLUME 81.6 FL (78-98); MEAN PLATELET VOLUME 8.5 FL (7.4-10.4); MONOCYTES # (AUTO) 0.9 X10'3 (0-0.9); NEUTROPHILS # (AUTO) 6.2 X10'3 (1.8-7.7); NEUTROPHILS % (AUTO) 73.7 % (42-75); PLATELET COUNT 186 X10'3 (140-440); RED BLOOD COUNT 3.21 X10'6 (4.20-5.60); RED CELL DISTRIBUTION WIDTH 17.2 % (11.5-14.5); WHITE BLOOD COUNT 8.4 X10'3 (4.5-11.0)
[2024-11-21 05:59] LABS: ALANINE AMINOTRANSFERASE 14 U/L (12-78); ALBUMIN 3.4 G/DL (3.4-5.0); ALBUMIN/GLOBULIN RATIO 1.4 (1.1-1.5); ALKALINE PHOSPHATASE 44 IU/L (46-116); ANION GAP 9 (8-16); ASPARTATE AMINO TRANSFERASE 16 U/L (10-37); BILIRUBIN,TOTAL 0.6 MG/DL (0.1-1.0); BLOOD UREA NITROGEN 40 MG/DL (7-18); BUN/CREATININE RATIO 25.3 (10.0-20.0); CALCIUM 8.4 MG/DL (8.5-10.1); CHLORIDE 103 MMOL/L (99-107); CREATININE 1.58 MG/DL (0.40-0.90); GLUCOSE 98 MG/DL (70-104); MAGNESIUM 2.2 MG/DL (1.5-2.4); PHOSPHORUS 3.3 MG/DL (2.3-4.5); POTASSIUM 3.5 MMOL/L (3.5-5.1); SODIUM 136 MMOL/L (135-145); TOTAL CARBON DIOXIDE 24.3 MMOL/L (24-32); TOTAL PROTEIN 5.9 G/DL (6.4-8.2); eCRCL 20 ML/MIN; eGFR 31 ML/MIN
[2024-11-21] MEDS: ALENDRONATE SODIUM 10 MG PO SCH (08:00)
[2024-11-21] MEDS: atorvastatin 20mg tablet PO SCH (08:46)
[2024-11-21] MEDS: atenolol 50mg tablet PO SCH (08:51)
[2024-11-21] MEDS: multivitamins, therapeutics tablet PO SCH (08:52)
[2024-11-21] MEDS: clopidogrel 75mg tablet PO SCH (08:53)
[2024-11-21] MEDS: ezetimibe 10mg tablet PO SCH (08:57)
[2024-11-21] MEDS: ondansetron/PF 4mg/2ml inj IV PRN (15:55)
[2024-11-21] MEDS: ipratropium/albuterol 3ml nebule NEB PRN (16:20)
[2024-11-21] MEDS: guaiFENesin 200 MG/10 ML oral syrup UD cup PO PRN (21:44)
[2024-11-22] VITALS (8 sets, daily range): BP systolic 90–147; BP diastolic 30–96; PULSE 65–71; RESP 18–28; TEMP 97.1–98.8; O2SAT 92–98
[2024-11-22 07:02] LABS: BASOPHILS % (AUTO) 0.2 % (0-1); EOSINOPHILS # (AUTO) 0.2 X10'3 (0-0.9); EOSINOPHILS % (AUTO) 2.3 % (0-6); HEMATOCRIT 24.5 % (35.0-45.0); HEMOGLOBIN 7.7 g/dl (12.0-16.0); LYMPHOCYTES # (AUTO) 0.9 X10'3 (1.1-4.8); LYMPHOCYTES % (AUTO) 10.5 % (21-51); MEAN CORPUSCULAR HEMOGLOBIN 26.3 PG (27.0-31.0); MEAN CORPUSCULAR HGB CONC 31.7 g/dL (33.0-36.5); MEAN CORPUSCULAR VOLUME 82.9 FL (78-98); MEAN PLATELET VOLUME 8.3 FL (7.4-10.4); MONOCYTES # (AUTO) 1.1 X10'3 (0-0.9); MONOCYTES % (AUTO) 12.3 % (2-12); NEUTROPHILS # (AUTO) 6.5 X10'3 (1.8-7.7); NEUTROPHILS % (AUTO) 74.7 % (42-75); PLATELET COUNT 175 X10'3 (140-440); RED BLOOD COUNT 2.95 X10'6 (4.20-5.60); RED CELL DISTRIBUTION WIDTH 17.5 % (11.5-14.5); WHITE BLOOD COUNT 8.7 X10'3 (4.5-11.0)
[2024-11-22 07:17] LABS: ALANINE AMINOTRANSFERASE 13 U/L (12-78); ALBUMIN/GLOBULIN RATIO 1.1 (1.1-1.5); ALKALINE PHOSPHATASE 44 IU/L (46-116); ANION GAP 9 (8-16); ASPARTATE AMINO TRANSFERASE 15 U/L (10-37); BILIRUBIN,TOTAL 0.6 MG/DL (0.1-1.0); BLOOD UREA NITROGEN 46 MG/DL (7-18); BUN/CREATININE RATIO 18.3 (10.0-20.0); CHLORIDE 103 MMOL/L (99-107); CREATININE 2.51 MG/DL (0.40-0.90); GLUCOSE 94 MG/DL (70-104); MAGNESIUM 2.2 MG/DL (1.5-2.4); PHOSPHORUS 4.2 MG/DL (2.3-4.5); POTASSIUM 4.4 MMOL/L (3.5-5.1); SODIUM 136 MMOL/L (135-145); TOTAL CARBON DIOXIDE 23.8 MMOL/L (24-32); TOTAL PROTEIN 5.7 G/DL (6.4-8.2); eCRCL 12 ML/MIN; eGFR 18 ML/MIN
[2024-11-22] MEDS: normal saline 1000ml 1,000 ML IV SCH (14:40)
[2024-11-23] VITALS (15 sets, daily range): BP systolic 85–133; BP diastolic 30–42; PULSE 63–89; RESP 15–24; TEMP 96.9–98.9; O2SAT 94–97
[2024-11-23 06:33] LABS: BASOPHILS % (AUTO) 0.3 % (0-1); EOSINOPHILS # (AUTO) 0.2 X10'3 (0-0.9); EOSINOPHILS % (AUTO) 1.9 % (0-6); HEMATOCRIT 24.2 % (35.0-45.0); HEMOGLOBIN 7.5 g/dl (12.0-16.0); LYMPHOCYTES # (AUTO) 0.9 X10'3 (1.1-4.8); LYMPHOCYTES % (AUTO) 11.2 % (21-51); MEAN CORPUSCULAR HEMOGLOBIN 26.4 PG (27.0-31.0); MEAN CORPUSCULAR HGB CONC 31.1 g/dL (33.0-36.5); MEAN CORPUSCULAR VOLUME 84.7 FL (78-98); MEAN PLATELET VOLUME 8.8 FL (7.4-10.4); MONOCYTES # (AUTO) 0.9 X10'3 (0-0.9); MONOCYTES % (AUTO) 11.8 % (2-12); NEUTROPHILS # (AUTO) 5.9 X10'3 (1.8-7.7); NEUTROPHILS % (AUTO) 74.8 % (42-75); PLATELET COUNT 162 X10'3 (140-440); RED BLOOD COUNT 2.86 X10'6 (4.20-5.60); RED CELL DISTRIBUTION WIDTH 17.8 % (11.5-14.5); WHITE BLOOD COUNT 7.8 X10'3 (4.5-11.0)
[2024-11-23 06:48] LABS: ANION GAP 10 (8-16); BLOOD UREA NITROGEN 57 MG/DL (7-18); BUN/CREATININE RATIO 18.6 (10.0-20.0); CALCIUM 7.7 MG/DL (8.5-10.1); CHLORIDE 106 MMOL/L (99-107); CREATININE 3.06 MG/DL (0.40-0.90); GLUCOSE 97 MG/DL (70-104); POTASSIUM 4.3 MMOL/L (3.5-5.1); SODIUM 138 MMOL/L (135-145); TOTAL CARBON DIOXIDE 22.1 MMOL/L (24-32); eCRCL 10 ML/MIN; eGFR 14 ML/MIN
[2024-11-23 06:49] LABS: ALANINE AMINOTRANSFERASE 11 U/L (12-78); ALBUMIN 2.8 G/DL (3.4-5.0); ALBUMIN/GLOBULIN RATIO 1.1 (1.1-1.5); ALKALINE PHOSPHATASE 43 IU/L (46-116); ASPARTATE AMINO TRANSFERASE 15 U/L (10-37); BILIRUBIN,TOTAL 0.5 MG/DL (0.1-1.0); MAGNESIUM 2.4 MG/DL (1.5-2.4); PHOSPHORUS 4.2 MG/DL (2.3-4.5); TOTAL PROTEIN 5.4 G/DL (6.4-8.2)
[2024-11-23] MEDS: lisinopril 20mg tablet PO SCH (08:00)
[2024-11-23] MEDS ORDERED: LIDOcaine 2% Viscous 15ml cup ONE (09:41)
[2024-11-23] MEDS ORDERED: MIDAZolam 1 MG/ML 5ML VIAL ONE (09:48)
[2024-11-23] MEDS ORDERED: fentaNYL/PF 50MCG/1 ML 2ML syringe ONE (09:48)
[2024-11-23] MEDS ORDERED: simethicone 40mg/0.6ml oral drops 30ml ONE (09:50)
[2024-11-23] MEDS: furosemide 20 MG/2 ML vial IV SCH (11:36)
[2024-11-23] MEDS ORDERED: SUCR1TAB PO (15:07)
[2024-11-24] MEDS ORDERED: pantoprazole 40mg Tablet.DR PO SCH (07:30)
[2024-11-26 12:51] LABS: OCCULT BLOOD STOOL POSITIVE (Neg)
== END 2024-11-23 16:46 | disposition home or self-care (01) | DRG 368 ==
LOC: ER 18:20 → ED HOLD 20:40 → EDBEDREQ 23:33 → PCU 3S 11-20 01:27
PROVIDERS: ADMIT Internal Medicine Pulmonary Disease; ATTEND Family Medicine
PROC: 30233N1 Transfusion of Nonautologous Red Blood Cells into Peripheral Vein, Percutaneous Approach (ICD-10-PCS; 2024-11-19)
PROC: 0DB78ZX Excision of Stomach, Pylorus, Via Natural or Artificial Opening Endoscopic, Diagnostic (ICD-10-PCS; principal; 2024-11-23)
PROC: 0DB48ZX Excision of Esophagogastric Junction, Via Natural or Artificial Opening Endoscopic, Diagnostic (ICD-10-PCS; 2024-11-23)
PROC: 0DB98ZX Excision of Duodenum, Via Natural or Artificial Opening Endoscopic, Diagnostic (ICD-10-PCS; 2024-11-23)
DX: K21.01 Gastro-esophageal reflux disease with esophagitis, with bleeding (principal); I50.23 Acute on chronic systolic (congestive) heart failure; N17.0 Acute kidney failure with tubular necrosis; I13.0 Hypertensive heart and chronic kidney disease with heart failure and stage 1 through stage 4 chronic kidney disease, or unspecified chronic kidney disease; I25.10 Atherosclerotic heart disease of native coronary artery without angina pectoris; I34.0 Nonrheumatic mitral (valve) insufficiency; E78.00 Pure hypercholesterolemia, unspecified; K44.9 Diaphragmatic hernia without obstruction or gangrene; D64.9 Anemia, unspecified; N18.9 Chronic kidney disease, unspecified; K29.70 Gastritis, unspecified, without bleeding; Z96.652 Presence of left artificial knee joint; Z96.643 Presence of artificial hip joint, bilateral; Z79.82 Long term (current) use of aspirin; Z79.01 Long term (current) use of anticoagulants; Z79.899 Other long term (current) drug therapy; Z95.5 Presence of coronary angioplasty implant and graft; Z90.710 Acquired absence of both cervix and uterus
CPT/HCPCS: 36415; 36430; 43239; 71045; 80053; 80061; 82272; 82728; 83540; 83550; 83735; 83880; 84100; 84484; 85008; 85025; 85027; 85610; 85730; 86885; 86900; 86901; 86920; 87081; 88305; 88313; 88342; 93005; 93306; 94640; 94760; 97116; 97161; 97530; 99152; 99291; A4615; A4620; G0378; J1756; J1940; J2250; J2405; J2470; J3010; J7030; J7050; P9016